=== PATIENT | female | born 1925 | race Caucasian/White ===

== ENCOUNTER 2016-08-02 04:41 | Inpatient (IN) | payer OTHER ==
[~2016-08-02] VITALS: Ht 157.5 cm; Wt 63.5 kg
--- NOTE | 2016-08-02 05:03 | NUR ---
PER PT WENT TO [facility] YESTERDAY HAD PORK AT THE [facility] ABOUT 0 STARTED VOMITING HAS NOT STOPPED, STOMACH ACHES BUT NO FEVER NO DIARRHEA,. PT REPORTS HAPPENS EVERY COUPLE OF WEEKS, AFTER EATING BUT NOT USUALLLY THIS LONG, ARRIVES RETCHING
--- NOTE | 2016-08-02 05:03 | NUR ---
MD ROSIBEL HALL
[2016-08-02] MEDS ORDERED: LIPITOR80 M1 PO (05:07)
[2016-08-02] MEDS ORDERED: ZETIA10 M1 PO (05:07)
[2016-08-02] MEDS ORDERED: METOPROLOL TAR100 M1 PO (05:07)
[2016-08-02] MEDS ORDERED: QUINAPRIL HCL10 M1 PO (05:07)
--- NOTE | 2016-08-02 05:10 | NUR ---
BLOOD DRAWN AND SENT TO LAB. LAV,SST,BLUE,SAUCEDO
--- NOTE | 2016-08-02 05:14 | ED GI/GU/ABDOMINAL COMPLAINT ---
History of Present Illness General Chief Complaint: Abdominal Pain/Flank Pain Stated Complaint: ABD PAIN,NAUSEA,AND VOMITING,DEHYDRATED Source: patient, family, old records Exam Limitations: no limitations Vital Signs & Intake/Output Vital Signs & Intake/Output Vital Signs Date Time Temp Pulse Resp B/P B/P Pulse O2 O2 Flow FiO2 Mean Ox Delivery Rate 08/03 0737 98.0 90 20 164/73 94 Room Air Room Air 08/02 0703 97.2 89 22 132/84 96 Room Air 08/02 0506 97.3 88 22 159/79 97 Room Air Allergies Coded Allergies: No Known Allergies (08/02/16) Triage Note: PER PT WENT TO [facility] YESTERDAY HAD PORK AT THE [facility] ABOUT 2230 STARTED VOMITING HAS NOT STOPPED, STOMACH ACHES BUT NO FEVER NO DIARRHEA,. PT REPORTS HAPPENS EVERY COUPLE OF WEEKS, AFTER EATING BUT NOT USUALLLY THIS LONG, ARRIVES RETCHING Triage Nurses Notes Reviewed? yes LMP (ages 10-50): post menopausal ? n Is pt currently ? No Onset: Just prior to arrival Duration: hour(s):, constant, continues in ED Timing: recent history Quality/Severity: aching, cramping, sharpness, severe, vomiting Location: epigastric Radiation: no radiation Activities at Onset: sleep Prior Abdominal Problems: none Past Sexual History: Unobtainable at this time Modifying Factors: Worsens With: eating, palpation. Associated Symptoms: abdominal pain, nausea/vomiting HPI: The afternoon prior to admission she had pork rice gravy.Several hours prior to admission patient complains of nausea vomiting severe epigastric pain described as sharp constant nonradiating. She denies fever chills chest pain cough shortness of breath headache dysuria rash bleeding ill contacts. (RENEE SEO MD) Reconcile Medications [ADULT 50+] (Unknown Strength) (Unknown Dose) UNKNOWN (Reported) Ascorbic Acid (Vitamin C) (Unknown Strength) CAPSULE.ER (Unknown Dose) SUPPLEMENT (Reported) Aspirin (Ecotrin*) 325 MG TABLET.DR 1 TAB PO DAILY HEART HEALTH (Reported) Atorvastatin Calcium (Lipitor) 80 MG TABLET 1 TAB PO DAILY CHOL (Reported) Calcium Carbonate (TUMS) (Unknown Strength) TAB.CHEW (Unknown Dose) SUPPLEMENT (Reported) Ezetimibe (Zetia) 10 MG TABLET 1 TAB PO DAILY CHOL (Reported) Folic Acid (Unknown Strength) TABLET (Unknown Dose) SUPPLEMENT (Reported) Metoprolol Tartrate 100 MG TABLET 1 TAB PO BID HTN (Reported) Multivitamin (Multivitamins) 1 EACH CAPSULE 1 TAB PO DAILY SUPPLEMENT ( Reported) [OCURITE] (Unknown Strength) (Unknown Dose) UNKNOWN (Reported) Quinapril HCl 10 MG TABLET 1 TAB PO DAILY HTN (Reported) Vitamin B Complex (B Complex) (Unknown Strength) TABLET (Unknown Dose) SUPPLEMENT (Reported) (EMMANUEL DOBSON,DACIA Petty) Past History Travel History Traveled to [place] past 21 day No Medical History Any Pertinent Medical History? see below for history Neurological: NONE EENT: NONE Cardiovascular: STENTS 14 YRS AGO CHOL Respiratory: NONE Gastrointestinal: NONE Hepatic: NONE Renal: NONE Musculoskeletal: NONE Psychiatric: NONE Endocrine: NONE Surgical History Surgical History: non-contributory Psychosocial History What is your primary language Belarusian Tobacco Use: Never used Family History Hx Contributory? No (RENEE SEO MD) Review of Systems Review of Systems Constitutional: Reports: see HPI, malaise, weakness. EENTM: Reports: no symptoms. Respiratory: Reports: no symptoms. Cardiovascular: Reports: no symptoms. GI: Reports: see HPI, abdominal pain, nausea, vomiting. Genitourinary: Reports: no symptoms. Musculoskeletal: Reports: no symptoms. Skin: Reports: no symptoms. Neurological/Psychological: Reports: no symptoms. Hematologic/Endocrine: Reports: no symptoms. Immunologic/Allergic: Reports: no symptoms. All Other Systems: Reviewed and Negative (RENEE SEO MD) Physical Exam Physical Exam General Appearance: well developed/nourished, alert, awake, anxious, moderate distress Head: atraumatic, normal appearance Eyes: Bilateral: normal appearance, PERRL, EOMI, normal inspection. Ears, Nose, Throat, Mouth: hearing grossly normal, moist mucous membrane Neck: normal inspection, supple, full range of motion, normal alignment Respiratory: normal breath sounds, chest non-tender, no respiratory distress, quiet respiration, lungs clear Cardiovascular: regular rate/rhythm, normal peripheral pulses, norml femoral pulses equa Peripheral Pulses: 4+ carotid (R), 4+ carotid (L) Gastrointestinal: normal bowel sounds, soft, no organomegaly, tenderness ( epigastric) Back: normal inspection, normal range of motion, no vertebral tenderness Extremities: normal range of motion, no ligament instability Neurologic/Psych: no motor/sensory deficits, awake, alert, oriented x 3, normal gait, normal mood/affect, product operations associate II-XII nml as tested Skin: intact, normal color, warm/dry Core Measures ACS in differential dx? Yes ASA ordered for poss ACS? No-ACS ruled out Severe Sepsis Present: No Septic Shock Present: No (GABBI DOBSON,RENEE) Progress Differential Diagnosis: biliary colic, cholecystitis, diverticulitis, gastritis, pancreatitis Plan of Care: Orders Procedure Date/time Status URINALYSIS 08/03 827 Complete TROPONIN LEVEL 08/02 502 Complete LIPASE 08/02 502 Complete COMPREHENSIVE METABOLIC PANEL 08/02 502 Complete CBC WITHOUT DIFFERENTIAL 08/02 502 Complete EKG 08/02 502 Active Laboratory Tests 08/02/16 0834: Urine Color YEL, Urine Clarity CLEAR, Urine pH 6.5, Ur Specific [place] 1.010, Urine Protein NEG, Urine Ketones NEG, Urine Nitrite POS H, Urine Bilirubin NEG, Urine Urobilinogen 0.2, Ur Leukocyte Esterase NEG, Ur Microscopic SEDIMENT EXAMINED, Urine RBC 3-5, Urine WBC 1-3 H, Ur Epithelial Cells FEW, Urine Bacteria MANY H, Urine Hemoglobin TRACE-INTACT, Urine Glucose NEG 08/02/16 0508: Anion Gap 12, Estimated GFR > 60, BUN/Creatinine Ratio 36.7 H, Glucose 141 H, Calcium 9.5, Total Bilirubin 0.9, AST 32, ALT 41, Alkaline Phosphatase 84, Troponin I 0.02, Total Protein 7.4, Albumin 4.4, Globulin 3.0, Albumin/Globulin Ratio 1.5, Lipase 111, CBC w Diff MAN DIFF ORDERED, RBC 4.48, MCV 93.6, MCH 31.0 , RDW 14.3, MPV 7.9, Gran % 91.1 H, Lymphocytes % 5.9 L, Monocytes % 2.6, Eosinophils % 0.2, Basophils % 0.2, Absolute Granulocytes 17.4 H, Segmented Neutrophils 91 H, Band Neutrophils 2, Absolute Lymphocytes 1.1 L, Lymphocytes 5 L, Monocytes 2, Absolute Monocytes 0.5, Absolute Eosinophils 0, Absolute Basophils 0, Platelet Estimate ADEQUATE, Normocytic RBCs VERIFIED, Normochromic RBCs VERIFIED, PUBS MCHC 33.1, Fld Total RBCs Counted 100 Diagnostic Imaging: Viewed by Me: CT Scan. Discussed w/RAD: CT Scan. Initial ED EKG: normal intervals, normal p-waves, normal sinus rhythm, RBBB, no ST T wave changes Prior EKG: unchanged Rhythm Strip: normal sinus rhythm Hand-Off Endorsed To: DACIA BENITEZ MD Endorsed Time: 703 Pending: CT (RENEE SEO MD) Comments: 08:23 patient signed out to me by Dr. Seo at shift car changer. PER RADIOLOGIST DR GONZALEZ, PT HAS ACUTE APPY. DIVERTICULOSIS. 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 08/02/2016 8:30:14 AM I have updated Ni regarding her CAT scan report. I am paging surgery. 08/02/2016 9:13:56 AM pt case discussed with Dr. Alvarado who wishes to review the patient's CAT scan images. I have delivered the disc to the radiology file room to be downloaded to our system. 08/02/2016 9:26:19 AM patient is currently being evaluated by Dr. Alvarado. (DACIA BENITEZ MD) Departure Departure Disposition: STILL A PATIENT Condition: Stable Referrals: LALIT MATHEWS MD (PCP/Family) Departure Forms: Customer Survey General Discharge Information (RENEE SEO MD) Departure Clinical Impression Primary Impression: Appendicitis, acute Qualifiers: Acute appendicitis type: with localized peritonitis Qualified Code: K35.3 - Acute appendicitis with localized peritonitis (DACIA BENITEZ MD) Customer Survey General Discharge Information (RENEE SEO MD)
--- NOTE | 2016-08-02 05:24 | NUR ---
RESTING COMF. NO FURTHER NAUSEA.
[2016-08-02 05:25] LABS: ABSOLUTE BASOPHIL COUNT 0 /CUMM (0.0-0.2); ABSOLUTE EOSINOPHIL COUNT 0 /CUMM (0.0-0.7); ABSOLUTE GRANULOCYTE CT 17.4 /CUMM (1.4-6.5); ABSOLUTE LYMPH COUNT 1.1 /CUMM (1.2-3.4); ABSOLUTE MONOCYTE COUNT 0.5 /CUMM (0.10-0.60); BASOPHIL % 0.2 % (0.0-2.0); EOSINOPHIL % 0.2 % (0-5); GRANULOCYTE % 91.1 % (42.2-75.2); HEMATOCRIT 41.9 % (37-47); MEAN CORPUSCULAR HGB CONC 33.1 G/DL (33.0-37.0); MEAN CORPUSCULAR VOLUME 93.6 FL (81.0-99.0); MEAN PLATELET VOLUME 7.9 FL (7.4-10.4); PLATELET COUNT 241 /CUMM (130-400); RBC DISTRIBUTION WIDTH 14.3 % (11.5-14.5); RED BLOOD CELL CT 4.48 /CUMM (4.20-5.40)
[2016-08-02 05:28] LABS: WHITE BLOOD CELL COUNT 19.1 /CUMM (4.8-10.8)
--- NOTE | 2016-08-02 07:02 | NUR ---
TO [facility] VIA EMS .
--- NOTE | 2016-08-02 07:24 | NUR ---
CARE ASSUMED BY THIS RN NOW. PT CURRENTLY OUT OF DEPARTMENT AT [facility] FOR CAT SCAN.
--- NOTE | 2016-08-02 08:26 | NUR ---
pt returned from cat scan now.
--- NOTE | 2016-08-02 08:38 | NUR ---
URINE TRIO SENT TO LAB
--- NOTE | 2016-08-02 08:54 | NUR ---
PT MEDICATED WITH ZOFRAN, MORPHINE AND UNASYN PER EMAR. TOLERATED WELL.
[2016-08-02] MEDS ORDERED: ASPIRIN EC325 M2 PO (09:03)
[2016-08-02] MEDS ORDERED: MULTIVITAMINS1 EAC8 PO (09:04)
[2016-08-02] MEDS ORDERED: FOLIC ACID1 M1 (09:05)
[2016-08-02] MEDS ORDERED: TUMS200 MG (09:05)
[2016-08-02] MEDS ORDERED: B COMPLEX1 EACH (09:05)
[2016-08-02] MEDS ORDERED: [UNRECOGNIZED DRUG - OTHER] (09:06)
[2016-08-02] MEDS ORDERED: VITAMIN C500 M7 (09:06)
[2016-08-02] MEDS ORDERED: [UNRECOGNIZED DRUG - OTHER] (09:07)
--- NOTE | 2016-08-02 09:26 | NUR ---
DR. HADDAD AT BEDSIDE FOR EVAL.
--- NOTE | 2016-08-02 10:49 | Cons- Cardiology ---
General Information and HPI Consulting Request Date of Consult: 08/02/16 Requested By: Yaz Alvarado M.D. Reason for Consult: Cardiac clearance for appendectomy Source of Information: patient, old records Exam Limitations: no limitations History of Present Illness: Ni Jacobs is an 89-year-old female who I have been following since 2001. At that time, she presented with chest pain. She had anterior ST elevation. She did not receive thrombolytic therapy or early catheterization. She had a peak troponin of 32.8. Her echo documented anterior and apical hypokinesis. She was transferred to [facility] where she was found to have 99% stenosis of the LAD. She had angioplasty and stenting performed successfully. Subsequently she was followed up in the office and has done well. She had a very high cholesterol of 278 when she first presented. She underwent cardiac rehabilitation and did very well. She had 1 episode of supraventricular tachycardia in cardiac rehab but no other issues. Subsequently her echocardiogram when it was repeated in 07/2002 showed normal left ventricular systolic function. Her last echo in 2015 again showed normal left ventricular systolic function with no regional wall motion abnormalities. She did have some evidence of diastolic dysfunction. Fortunately, Ni has not had any further cardiac events since her initial presentation. Her lipids have been under good control on high dose Lipitor and Zetia. Her last stress test in 2005 showed no evidence of ischemia. Her medications include atorvastatin, Ecotrin, metoprolol, quinapril and Zetia. I last saw her in the office about 2 months ago which time she was completely asymptomatic and her physical examination was unremarkable. Ni now presents with abdominal pain since yesterday and was found to have appendicitis and surgery is planned in the near future. She has not had any cardiac complaints since I saw her last including chest pain, shortness of breath, palpitations, etc. Allergies/Medications Allergies: Coded Allergies: No Known Allergies (08/02/16) Home Med List: [ADULT 50+] (Unknown Strength) (Unknown Dose) UNKNOWN (Reported) Ascorbic Acid (Vitamin C) (Unknown Strength) CAPSULE.ER (Unknown Dose) SUPPLEMENT (Reported) Aspirin (Ecotrin*) 325 MG TABLET.DR 1 TAB PO DAILY HEART HEALTH (Reported) Atorvastatin Calcium (Lipitor) 80 MG TABLET 1 TAB PO DAILY CHOL (Reported) Calcium Carbonate (TUMS) (Unknown Strength) TAB.CHEW (Unknown Dose) SUPPLEMENT (Reported) Ezetimibe (Zetia) 10 MG TABLET 1 TAB PO DAILY CHOL (Reported) Folic Acid (Unknown Strength) TABLET (Unknown Dose) SUPPLEMENT (Reported) Metoprolol Tartrate 100 MG TABLET 1 TAB PO BID HTN (Reported) Multivitamin (Multivitamins) 1 EACH CAPSULE 1 TAB PO DAILY SUPPLEMENT ( Reported) [OCURITE] (Unknown Strength) (Unknown Dose) UNKNOWN (Reported) Quinapril HCl 10 MG TABLET 1 TAB PO DAILY HTN (Reported) Vitamin B Complex (B Complex) (Unknown Strength) TABLET (Unknown Dose) SUPPLEMENT (Reported) Current Medications: Current Medications Sig/Wyatt Start time Last Medication Dose Route Stop Time Status Admin Acetaminophen 0 .STK-MED ONE 08/02 0552 DC IV Acetaminophen 0 .STK-MED ONE 08/02 0547 DC IV Acetaminophen 1,000 MG ONCE ONE 08/02 0545 DC 08/02 IV 08/02 0546 0550 Ampicillin Sodium/ 0 .STK-MED ONE 08/02 0846 DC Sulbactam Sodium .ROUTE Ampicillin Sodium/ 3,000 MG ONCE ONE 08/02 0830 DC 08/02 Sulbactam Sodium IV 08/02 0859 0854 Sodium Chloride 100 ML Morphine Sulfate 0 .STK-MED ONE 08/02 0846 DC .ROUTE Morphine Sulfate 2 MG ONCE ONE 08/02 0845 DC 08/02 IV 08/02 0846 0854 Morphine Sulfate 2 MG ONCE ONE 08/02 0700 DC 08/02 IV 08/02 0701 0701 Morphine Sulfate 0 .STK-MED ONE 08/02 0656 DC .ROUTE Ondansetron HCl 0 .STK-MED ONE 08/02 0846 DC .ROUTE Ondansetron HCl 4 MG ONCE ONE 08/02 0845 DC 08/02 IV 08/02 0846 0854 Ondansetron HCl 4 MG ONCE ONE 08/02 0515 DC 08/02 IV 08/02 0516 0509 Ondansetron HCl 0 .STK-MED ONE 08/02 0503 DC .ROUTE Promethazine HCl 12.5 MG ONCE ONE 08/02 1045 UNVr IV 08/02 1046 Sodium Chloride 1,000 ML BOLUS ONE 08/02 0515 DC 08/02 IV 08/02 0614 0509 Review of Systems Review of Systems: She has no other complaints in the review of systems aside from abdominal pain Past History Travel History Traveled to [place] past 21 day No Medical History Neurological: NONE EENT: NONE Cardiovascular: STENTS 14 YRS AGO CHOL Respiratory: NONE Gastrointestinal: NONE Hepatic: NONE Renal: NONE Musculoskeletal: NONE Psychiatric: NONE Endocrine: NONE Surgical History Surgical History: non-contributory Exam & Diagnostic Data Vital Signs and I&O Vital Signs Date Time Temp Pulse Resp B/P B/P Pulse O2 O2 Flow FiO2 Mean Ox Delivery Rate 08/03 0737 98.0 90 20 164/73 94 Room Air Room Air 08/02 0703 97.2 89 22 132/84 96 Room Air 08/02 0506 97.3 88 22 159/79 97 Room Air Intake & Output 08/02 1600 08/02 0800 08/02 0000 08/01 1600 08/01 0800 08/01 0000 Intake Total 0 Output Total Balance 0 Intake, Oral 0 Patient 165 lb Weight Physical Exam: Well-developed well-nourished elderly woman complaining of abdominal pain HEENT exam normal Neck veins not distended Carotids normal Chest clear Heart regular rhythm no murmurs Abdomen diffusely tender especially in the right lower quadrant to deep palpation Extremities no edema Labs/Rajeev Results: Laboratory Tests 08/02 08/02 0834 0508 Chemistry Sodium (137 - 145 mmol/L) 135 L Potassium (3.5 - 5.1 mmol/L) 4.2 Chloride (98 - 107 mmol/L) 101 Carbon Dioxide (22 - 30 mmol/L) 23 Anion Gap (5 - 16) 12 BUN (7 - 17 mg/dL) 22 H Creatinine (0.5 - 1.0 mg/dL) 0.6 Estimated GFR (>60 ml/min) > 60 BUN/Creatinine Ratio (7 - 25 %) 36.7 H Glucose (65 - 99 mg/dL) 141 H Calcium (8.4 - 10.2 mg/dL) 9.5 Total Bilirubin (0.2 - 1.3 mg/dL) 0.9 AST (14 - 36 U/L) 32 ALT (9 - 52 U/L) 41 Alkaline Phosphatase (<127 U/L) 84 Troponin I (< 0.11 ng/ml) 0.02 Total Protein (6.3 - 8.2 g/dL) 7.4 Albumin (3.5 - 5.0 g/dL) 4.4 Globulin (1.9 - 4.2 gm/dL) 3.0 Albumin/Globulin Ratio (1.1 - 2.2 %) 1.5 Lipase (23 - 300 U/L) 111 Hematology CBC w Diff MAN DIFF ORDERED WBC (4.8 - 10.8 /CUMM) 19.1 H RBC (4.20 - 5.40 /CUMM) 4.48 Hgb (12.0 - 16.0 G/DL) 13.9 Hct (37 - 47 %) 41.9 MCV (81.0 - 99.0 FL) 93.6 MCH (27.0 - 31.0 PG) 31.0 RDW (11.5 - 14.5 %) 14.3 Plt Count (130 - 400 /CUMM) 241 MPV (7.4 - 10.4 FL) 7.9 Gran % (42.2 - 75.2 %) 91.1 H Lymphocytes % (20.5 - 51.1 %) 5.9 L Monocytes % (1.7 - 9.3 %) 2.6 Eosinophils % (0 - 5 %) 0.2 Basophils % (0.0 - 2.0 %) 0.2 Absolute Granulocytes (1.4 - 6.5 /CUMM) 17.4 H Segmented Neutrophils (42.2 - 75.2 %) 91 H Band Neutrophils (0.0 - 5.0 %) 2 Absolute Lymphocytes (1.2 - 3.4 /CUMM) 1.1 L Lymphocytes (20.5 - 51.1 %) 5 L Monocytes (1.7 - 9.3 %) 2 Absolute Monocytes (0.10 - 0.60 /CUMM) 0.5 Absolute Eosinophils (0.0 - 0.7 /CUMM) 0 Absolute Basophils (0.0 - 0.2 /CUMM) 0 Platelet Estimate (ADEQUATE) ADEQUATE Normocytic RBCs VERIFIED Normochromic RBCs VERIFIED PUBS MCHC (33.0 - 37.0 G/DL) 33.1 Other Body Source Fld Total RBCs Counted (%) 100 Urines Urine Color (YEL,AMB,STR) YEL Urine Clarity (CLEAR) CLEAR Urine pH (5.0 - 8.0) 6.5 Ur Specific [place] (1.001 - 1.035) 1.010 Urine Protein (NEG,<30 MG/DL) NEG Urine Ketones (NEG) NEG Urine Nitrite (NEG) POS H Urine Bilirubin (NEG) NEG Urine Urobilinogen (0.1 - 1.0 EU/dl) 0.2 Ur Leukocyte Esterase (NEG) NEG Ur Microscopic SEDIMENT EXAMINED Urine RBC (0 - 5 /HPF) 3-5 Urine WBC (0 - 2 /HPF) 1-3 H Ur Epithelial Cells (NONE,FEW) FEW Urine Bacteria (NEG/NONE) MANY H Urine Hemoglobin (NEG) TRACE-INTACT Urine Glucose (N MG/DL) NEG Diagnostic Data EKG Results Sinus rhythm at a rate of 76 with first-degree AV block and right bundle branch block pattern. The bundle branch is new since her last EKG in the [employer] system from 2002. However her recent office EKGs have shown right bundle branch block and look very similar to today's EKG. CXR Results Not done Assessment/Plan Assessment/Plan Ni Jacobs is an 89-year-old female with previous myocardial infarction but preserved left ventricular function. She had a stent to her LAD many years ago but she has been very stable since then with no recurrence of any ischemic heart disease. She is on a good medical regimen. She is stable from a cardiac standpoint and cleared for urgent surgery for appendicitis. I would resume her preoperative medications as soon as possible postoperatively. Consult Acknowledgment - Thank you for your consult request.
--- NOTE | 2016-08-02 11:05 | NUR ---
DR. EDUARDO AT BEDSIDE FOR EVAL.
--- NOTE | 2016-08-02 11:07 | NUR ---
BLOOD DRAWN AND SENT TO LAB P[facility]
--- NOTE | 2016-08-02 11:17 | RADIOLOGY REPORT ---
EXAMINATION: XR PORTABLE CHEST CLINICAL INFORMATION: Preoperative chest x-ray COMPARISON: None TECHNIQUE: Portable frontal view of the chest was obtained. FINDINGS: Cardiomediastinal silhouette is within normal limits. Mild prominence of the pulmonary and bronchial markings likely representing chronic change. No acute airspace opacity. There is no pleural effusion. Bony thorax is intact. IMPRESSION: 1. No acute pulmonary disease. 2. Probable chronic changes.
--- NOTE | 2016-08-02 11:33 | NUR ---
PINK TOP RE-DRAWN VIA STRAIGHT STICK AND SENT TO LAB NOW.
--- NOTE | 2016-08-02 11:48 | NUR ---
PT'S O2 SAT DIPPED TO 89% ON RA WHILE SLEEPING. PT PLACED ON 2L NC OXYGEN WITH IMPROVEMENT TO 94%.
--- NOTE | 2016-08-02 12:11 | History & Physical Pre-Op ---
General Information and HPI Source of Information: patient, old records Exam Limitations: no limitations History of Present Illness: This is an 89-year-old woman who presents from home to the emergency room for evaluation of abdominal pain. She states the pain began yesterday afternoon. The pain was more diffuse bilateral lower abdominal pain. Bowel function did not improve her symptoms. There is anorexia but no vomiting. This morning the pain was severe prompting an early-morning trip to the emergency room for evaluation. Allergies/Medications Allergies: Coded Allergies: No Known Allergies (08/02/16) Home Med list [ADULT 50+] (Unknown Strength) (Unknown Dose) UNKNOWN (Reported) Ascorbic Acid (Vitamin C) (Unknown Strength) CAPSULE.ER (Unknown Dose) SUPPLEMENT (Reported) Aspirin (Ecotrin*) 325 MG TABLET.DR 1 TAB PO DAILY HEART HEALTH (Reported) Atorvastatin Calcium (Lipitor) 80 MG TABLET 1 TAB PO DAILY CHOL (Reported) Calcium Carbonate (TUMS) (Unknown Strength) TAB.CHEW (Unknown Dose) SUPPLEMENT (Reported) Ezetimibe (Zetia) 10 MG TABLET 1 TAB PO DAILY CHOL (Reported) Folic Acid (Unknown Strength) TABLET (Unknown Dose) SUPPLEMENT (Reported) Metoprolol Tartrate 100 MG TABLET 1 TAB PO BID HTN (Reported) Multivitamin (Multivitamins) 1 EACH CAPSULE 1 TAB PO DAILY SUPPLEMENT ( Reported) [OCURITE] (Unknown Strength) (Unknown Dose) UNKNOWN (Reported) Quinapril HCl 10 MG TABLET 1 TAB PO DAILY HTN (Reported) Vitamin B Complex (B Complex) (Unknown Strength) TABLET (Unknown Dose) SUPPLEMENT (Reported) Past History Medical History Neurological: NONE EENT: NONE Cardiovascular: hypertension, hyperlipidemia, STENTS 14 YRS AGO Respiratory: NONE Gastrointestinal: NONE Hepatic: NONE Renal: NONE Musculoskeletal: NONE Psychiatric: NONE Endocrine: NONE Surgical History Pertinent Surgical History: hernia repair-inguinal Review of Systems Review of Systems: chest pain no exertional dyspnea. Abdominal pain per HPI. No dysuria remainder 12 points negative Exam & Diagnostic Data Last 24 Hrs of Vital Signs/I&O Vital Signs Date Time Temp Pulse Resp B/P B/P Pulse O2 O2 Flow FiO2 Mean Ox Delivery Rate 08/02 1135 101.4 97 16 152/67 98 Room Air 08/02 0837 98.0 90 20 164/73 94 Room Air Room Air 08/02 0703 97.2 89 22 132/84 96 Room Air 08/02 0506 97.3 88 22 159/79 97 Room Air Intake & Output 08/02 1600 08/02 0800 08/02 0000 Intake Total 0 Output Total Balance 0 Intake, Oral 0 Patient 165 lb Weight Physical Exam: Gen.: She looks well she looks her stated age and is of average body habitus. HEENT: Anicteric PERRL EOMI Neck: Supple no adenopathy no JVD Chest: Nontender normal excursion normal effort Abdomen: Soft and tender bilateral lower abdomen right greater than left. Well- healed inguinal scar. Last 24 Hrs of Labs/Rajeev: Laboratory Tests 08/02/16 0834: Urine Color YEL, Urine Clarity CLEAR, Urine pH 6.5, Ur Specific [place] 1.010, Urine Protein NEG, Urine Ketones NEG, Urine Nitrite POS H, Urine Bilirubin NEG, Urine Urobilinogen 0.2, Ur Leukocyte Esterase NEG, Ur Microscopic SEDIMENT EXAMINED, Urine RBC 3-5, Urine WBC 1-3 H, Ur Epithelial Cells FEW, Urine Bacteria MANY H, Urine Hemoglobin TRACE-INTACT, Urine Glucose NEG 08/02/16 0508: Anion Gap 12, Estimated GFR > 60, BUN/Creatinine Ratio 36.7 H, Glucose 141 H, Calcium 9.5, Total Bilirubin 0.9, AST 32, ALT 41, Alkaline Phosphatase 84, Troponin I 0.02, Total Protein 7.4, Albumin 4.4, Globulin 3.0, Albumin/Globulin Ratio 1.5, Lipase 111, CBC w Diff MAN DIFF ORDERED, RBC 4.48, MCV 93.6, MCH 31.0 , RDW 14.3, MPV 7.9, Gran % 91.1 H, Lymphocytes % 5.9 L, Monocytes % 2.6, Eosinophils % 0.2, Basophils % 0.2, Absolute Granulocytes 17.4 H, Segmented Neutrophils 91 H, Band Neutrophils 2, Absolute Lymphocytes 1.1 L, Lymphocytes 5 L, Monocytes 2, Absolute Monocytes 0.5, Absolute Eosinophils 0, Absolute Basophils 0, Platelet Estimate ADEQUATE, Normocytic RBCs VERIFIED, Normochromic RBCs VERIFIED, PUBS MCHC 33.1, Fld Total RBCs Counted 100 Diagnostic Data EKG Results Sinus rhythm at a rate of 76 with first-degree AV block and right bundle branch block pattern. The bundle branch is new since her last EKG in the [employer] system from 2002. However her recent office EKGs have shown right bundle branch block and look very similar to today's EKG. CXR Results Not done Other Results CT scan of the abdomen pelvis was personally reviewed. The images show fecalith in the base of the appendix with retrocecal appendix extending up to the level of the liver. There is no free fluid no free air Assessment/Plan Assessment/Plan: Acute appendicitis in elderly woman. She has baseline cardiac disease which has been stable for many years. Currently her infectious process warrants emergent surgical intervention. She was taken the operating for laparoscopic appendectomy. Broad-spectrum antibiotics will be given perioperatively. Patient's informed the risk of the operation going bleeding infection and conversion to open. She agrees to proceed. As Ranked By This Provider Problem List: 1. Appendicitis, acute Copies To: BISI DOBSON,LALIT
--- NOTE | 2016-08-02 12:16 | NUR ---
PRE OP SCRUB COMPLETED. JEWELRY REMOVED EXCEPT WEDDING BAND (UNABLE TO GET OVER KNUCKLE). PT IS DROWSY TO VERBAL STIMULI AFTER PHENERGEN ADMINISTRATION. VSS. WILL CONTINUE TO MONITOR.
--- NOTE | 2016-08-02 12:30 | NUR ---
PT SENT TO OR NOW. SPOKE WITH ANESTHESIOLOGIST WHO WAS INFORMED OF PT'S TEMP OF 102 BUT IV OFIRMEV INFUSING CURRENTLY. ALSO INFORMED OF PT'S SLIGHT DROWSINESS AFTER PHENERGEN ADMINISTRATION AND PT PLACED ON 2L NC OXYGEN FOR DECREASED O2 SAT WHILE SLEEPING.
--- NOTE | 2016-08-02 15:31 | Operative Report ---
Operative/Inv Procedure Report Surgery Date: 08/02/16 Name of Procedure: Laparoscopic appendectomy Pre-Operative Diagnosis: Appendicitis Post-Operative Diagnosis: Same, with peritonitis/perforation Estimated Blood Loss: scant Surgeon/Flat Sheet Maker: JONO HADDAD MD Anesthesia: general endotracheal tube Specimens: Appendix Microbiology: Fluid for culture Operative Indication: See preoperative H&P Operative/Procedure Note Note: After consent patient is brought to the operating room and laid supine. General anesthesia was obtained his abdomen was prepped and draped. Skin above the umbilicus was after local anesthesia a curvilinear incision made sharply. We dissected through subcutaneous tissues tissues bluntly and identified the fascia. It was grasped with Empire's and a fasciotomy created sharply. The peritoneum was entered sharply and a blunt Arroyo port was placed. Pneumoperitoneum was achieved. 2, 5 mm ports were placed in the suprapubic region and left lower quadrant, after local anesthesia was instilled and under direct vision the camera. Patient placed in Trendelenburg and rotated towards the left. The abdomen was explored. The appendix was retrocecal as was noted on preop CT scan. The white line of Toldt was then taken down with cautery. We then mobilized the ileum and cecum along with the appendix medially. The appendix was chronically inflamed and a portion of the proximal aspect of that was gangrenous with near perforation. The appendix perforated spontaneously during our dissection. The specimen of purulent stool was taken for culture. Care dissection superiorly up to the level of the liver. We were then able to peel the appendix off of the retroperitoneal tissues and cecum. A window medial was then developed bluntly along the avascular planes. At this point we had mobilized the appendix enough to divide the mesentery. A window at the base of the appendix was developed with a [place]. The mesentery was then divided with 2 loads of Endo KERRI Lopez load. The base was divided with a reload. The appendix placed in Endo Catch bag and cinched up. The right lower quadrant and pelvis were then irrigated with normal saline. Hemostasis was adequate. Ports then removed and appendix delivered and passed off the field. The fascia was closed 0 Vicryl suture. Skin incisions closed with 4-0 Vicryl. Steri-Strips and sterile dressing applied. Sponge and needle counts are correct CC: BISI DOBSON,LALIT
--- NOTE | 2016-08-02 16:02 | Admission Core Measures ---
Admission Lab Results I reviewed the following labs: Laboratory Tests 08/02 08/02 0834 0508 Chemistry Sodium (137 - 145 mmol/L) 135 L Potassium (3.5 - 5.1 mmol/L) 4.2 Chloride (98 - 107 mmol/L) 101 Carbon Dioxide (22 - 30 mmol/L) 23 Anion Gap (5 - 16) 12 BUN (7 - 17 mg/dL) 22 H Creatinine (0.5 - 1.0 mg/dL) 0.6 Estimated GFR (>60 ml/min) > 60 BUN/Creatinine Ratio (7 - 25 %) 36.7 H Glucose (65 - 99 mg/dL) 141 H Calcium (8.4 - 10.2 mg/dL) 9.5 Total Bilirubin (0.2 - 1.3 mg/dL) 0.9 AST (14 - 36 U/L) 32 ALT (9 - 52 U/L) 41 Alkaline Phosphatase (<127 U/L) 84 Troponin I (< 0.11 ng/ml) 0.02 Total Protein (6.3 - 8.2 g/dL) 7.4 Albumin (3.5 - 5.0 g/dL) 4.4 Globulin (1.9 - 4.2 gm/dL) 3.0 Albumin/Globulin Ratio (1.1 - 2.2 %) 1.5 Lipase (23 - 300 U/L) 111 Hematology CBC w Diff MAN DIFF ORDERED WBC (4.8 - 10.8 /CUMM) 19.1 H RBC (4.20 - 5.40 /CUMM) 4.48 Hgb (12.0 - 16.0 G/DL) 13.9 Hct (37 - 47 %) 41.9 MCV (81.0 - 99.0 FL) 93.6 MCH (27.0 - 31.0 PG) 31.0 RDW (11.5 - 14.5 %) 14.3 Plt Count (130 - 400 /CUMM) 241 MPV (7.4 - 10.4 FL) 7.9 Gran % (42.2 - 75.2 %) 91.1 H Lymphocytes % (20.5 - 51.1 %) 5.9 L Monocytes % (1.7 - 9.3 %) 2.6 Eosinophils % (0 - 5 %) 0.2 Basophils % (0.0 - 2.0 %) 0.2 Absolute Granulocytes (1.4 - 6.5 /CUMM) 17.4 H Segmented Neutrophils (42.2 - 75.2 %) 91 H Band Neutrophils (0.0 - 5.0 %) 2 Absolute Lymphocytes (1.2 - 3.4 /CUMM) 1.1 L Lymphocytes (20.5 - 51.1 %) 5 L Monocytes (1.7 - 9.3 %) 2 Absolute Monocytes (0.10 - 0.60 /CUMM) 0.5 Absolute Eosinophils (0.0 - 0.7 /CUMM) 0 Absolute Basophils (0.0 - 0.2 /CUMM) 0 Platelet Estimate (ADEQUATE) ADEQUATE Normocytic RBCs VERIFIED Normochromic RBCs VERIFIED PUBS MCHC (33.0 - 37.0 G/DL) 33.1 Other Body Source Fld Total RBCs Counted (%) 100 Urines Urine Color (YEL,AMB,STR) YEL Urine Clarity (CLEAR) CLEAR Urine pH (5.0 - 8.0) 6.5 Ur Specific [place] (1.001 - 1.035) 1.010 Urine Protein (NEG,<30 MG/DL) NEG Urine Ketones (NEG) NEG Urine Nitrite (NEG) POS H Urine Bilirubin (NEG) NEG Urine Urobilinogen (0.1 - 1.0 EU/dl) 0.2 Ur Leukocyte Esterase (NEG) NEG Ur Microscopic SEDIMENT EXAMINED Urine RBC (0 - 5 /HPF) 3-5 Urine WBC (0 - 2 /HPF) 1-3 H Ur Epithelial Cells (NONE,FEW) FEW Urine Bacteria (NEG/NONE) MANY H Urine Hemoglobin (NEG) TRACE-INTACT Urine Glucose (N MG/DL) NEG Admission Meds I reviewed the following Meds: Current Medications Sig/Wyatt Start time Last Medication Dose Stop Time Status Admin Acetaminophen 1,000 MG Q6P PRN 08/02 1600 UNVr (Ofirmev) N/A 1 UNIT (No Carrier) Ampicillin Sodium/ 3,000 MG Q6 08/02 2000 UNVr Sulbactam Sodium (Unasyn) Sodium Chloride 100 ML (Normal Saline 0.9%) Aspirin Buffered 325 MG DAILY 08/03 1000 UNVr (Ecotrin) Ezetimibe 10 MG DAILY 08/03 1000 UNVr (Zetia) Heparin Sodium 5,000 UNIT Q8 08/02 2200 UNVr (Porcine) Lisinopril 10 MG DAILY 08/03 1000 UNVr (Prinivil) Metoprolol Tartrate 100 MG BID 08/02 2200 UNVr (Lopressor) Morphine Sulfate 2 MG Q4-6 PRN PRN 08/02 1600 UNVr (Morphine) Morphine Sulfate 4 MG Q4-6 PRN PRN 08/02 1600 UNVr (Morphine) Ondansetron HCl 4 MG Q6P PRN 08/02 1600 UNVr (Zofran) Potassium Chloride 20 MEQ Q10H 08/02 1600 UNVr (KCl 20MEQ in D5W NS 1000ML) Dextrose/Sodium 1,000 ML Chloride (D5-Normal Saline) Acute Coronary Syndrome Inclusion Criteria ACS Diagnosis No Inpatient Core Measures LDL Reminder: If No, please order W/I first 24hr of stay Congestive Heart Failure Inclusion Criteria CHF Diagnosis No Cerebrovascular accident Inclusion Criteria CVA/TIA Diagnosis No Inpatient Core Measures Bedside Swallow Eval Reminder: If BSE failed, place ST order Antithrombotic Reminder: Order Antithrombotic Medication by end of day 2 Antithrombotic Reminder: Document Reason Antithrombotic Not ordered by end of day 2 AFIB/Flutter Reminder: If Present, add to problem list AFIB/Flutter Reminder: Order Anticoag Medication for pts with AFIB/Flutter Atherosclerosis Reminder: If Present, add to problem list LDL Reminder: If No, please order W/I first 24hr of stay PT Order Reminder: If No, please order Venous thromboembolism Inpatient Core Measures VTE Risk Factors: Age > 40, [facility] prophylaxis d/t No contraindications No VTE Pharm Prophylaxis d/t No contraindications Inclusion Criteria - Per Current guidelines, there needs to be overlap - treatment for the first 5 days of Warfarin therapy. - Parenteral Anticoagulation (IV or SC) needs to be - given along with Warfarin therapy. VTE Diagnosis No VTE Type NONE VTE Confirmed by (Test) NONE Problem List As ranked by this Provider includes Assessment & Plan 1. Perforated appendicitis 2. S/P laparoscopic appendectomy HOME MEDS Home Med List Aspirin (Ecotrin*) 325 MG TABLET.DR 1 TAB PO DAILY HEART HEALTH (Reported) Atorvastatin Calcium (Lipitor) 80 MG TABLET 1 TAB PO DAILY CHOL (Reported) Ezetimibe (Zetia) 10 MG TABLET 1 TAB PO DAILY CHOL (Reported) Metoprolol Tartrate 100 MG TABLET 1 TAB PO BID HTN (Reported) Multivitamin (Multivitamins) 1 EACH CAPSULE 1 TAB PO DAILY SUPPLEMENT ( Reported) Quinapril HCl 10 MG TABLET 1 TAB PO DAILY HTN (Reported)
--- NOTE | 2016-08-02 17:03 | PN- General Surgery ---
Subjective Subjective: POC: Patient comfortable, no pain no nausea. She denies fever or chills. No vomiting. Objective Vital Signs and I&Os Vital Signs Date Time Temp Pulse Resp B/P B/P Pulse O2 O2 Flow FiO2 Mean Ox Delivery Rate 08/02 1231 102.0 93 20 152/69 96 Nasal 2.0L Cannula 08/02 1215 101.4 08/02 1135 101.4 97 16 152/67 98 Room Air 08/02 0837 98.0 90 20 164/73 94 Room Air Room Air 08/02 0703 97.2 89 22 132/84 96 Room Air 08/02 0506 97.3 88 22 159/79 97 Room Air Intake & Output 08/02 1600 08/02 0800 08/02 0000 08/01 1600 08/01 0000 Intake Total 0 Output Total Balance 0 Intake, Oral 0 Patient 165 lb Weight Physical Exam: Well-developed well-nourished no apparent distress. HEENT: Atraumatic, extraocular motion intact dry mucous membranes, Neck: Supple, no lymphadenopathy Respiratory: No respiratory distress Abdomen: Soft, nontender nondistended, dressings clean dry and intact Extremities: No edema, no calf pain Neuro: Alert and oriented x3 Psych: Mood affect normal, normal memory normal judgment. Skin: Warm and dry, no rash on exposed skin Assessment/Plan Assessment/Plan Postop day #0 status post laparoscopic appendectomy secondary to appendicitis with perforation/peritonitis Admitted to general surgical service, Dr. Alvarado Requires IV antibiotics, Unasyn secondary to perforation/peritonitis Advance diet as tolerated GI and DVT prophylaxis Pain medication as needed IV fluids, DC when tolerating adequate by mouth Labs tomorrow morning Core Measures/Miscellaneous Venous Thromboembolism VTE Risk Factors: Age > 40, Surgery VTE Contraindications: No Contraindications VTE Diagnosis: No VTE Type: NONE VTE Confirmed by (Test): NONE Beta Hilary Is Beta Hilary a Home Med? No Antibiotics Is Patient on Antibiotics? Yes If Yes: infection
[2016-08-02 17:45] VITALS: BP 110/60
--- NOTE | 2016-08-02 18:00 | NUR ---
PT ARRIVED TO FLOOR AT [facility]. 174. A&O X 3, LETHARGIC, AROUSABLE, NO C/O PAIN. FAMILY TO BEDSIDE. BED LOW, LOCKED, CALL BENITEZ WITHIN REACH AND BED ALARM ENGAGED. CONT TO MONITOR.
[2016-08-02 20:00] VITALS: BP 138/68
[2016-08-02 22:00] VITALS: BP 136/66
[2016-08-03 00:27] VITALS: BP 120/58
[2016-08-03 02:18] VITALS: BP 104/50
[2016-08-03 06:00] VITALS: BP 110/56
[2016-08-03 08:23] LABS: ABSOLUTE BASOPHIL COUNT 0 /CUMM (0.0-0.2); ABSOLUTE EOSINOPHIL COUNT 0 /CUMM (0.0-0.7); ABSOLUTE GRANULOCYTE CT 14.2 /CUMM (1.4-6.5); ABSOLUTE LYMPH COUNT 1.1 /CUMM (1.2-3.4); ABSOLUTE MONOCYTE COUNT 0.9 /CUMM (0.10-0.60); BASOPHIL % 0 % (0.0-2.0); EOSINOPHIL % 0 % (0-5); GRANULOCYTE % 87.2 % (42.2-75.2); MEAN CORPUSCULAR HGB 31.5 PG (27.0-31.0); MEAN CORPUSCULAR HGB CONC 33.2 G/DL (33.0-37.0); MEAN CORPUSCULAR VOLUME 94.8 FL (81.0-99.0); MEAN PLATELET VOLUME 8.2 FL (7.4-10.4); PLATELET COUNT 185 /CUMM (130-400); RBC DISTRIBUTION WIDTH 14.4 % (11.5-14.5); RED BLOOD CELL CT 3.57 /CUMM (4.20-5.40); WHITE BLOOD CELL COUNT 16.3 /CUMM (4.8-10.8)
--- NOTE | 2016-08-03 08:31 | NUR ---
PT HAS NO CODE STATUS ON RECORD. SURG GELACIO GALE INFORMED.
[2016-08-03 08:55] LABS: HEMATOCRIT 33.8 % (37-47)
--- NOTE | 2016-08-03 09:59 | PN- General Surgery ---
See Addendum Subjective Subjective: pod#1 s/p lap appy(perforated) no major issues overnight denies cp, sob, no n+v with diet Objective Vital Signs and I&Os Vital Signs Date Time Temp Pulse Resp B/P B/P Pulse O2 O2 Flow FiO2 Mean Ox Delivery Rate / 0901 108/50 06/ 0600 99.0 83 18 110/56 94 Room Air 08/03 0218 100.1 72 20 104/50 88 / 0027 100.2 70 20 120/58 86 / 2200 98.8 70 20 136/66 93 Room Air / 2121 130/58 / 2000 98.9 71 20 138/68 93 Room Air 08/02 1745 97.5 79 18 110/60 94 Room Air 08/02 1231 102.0 93 20 152/69 96 Nasal 2.0L Cannula 08/02 1215 101.4 08/02 1135 101.4 97 16 152/67 98 Room Air Intake & Output 08/03 1600 08/03 0800 08/03 0000 08/02 1600 08/02 0800 / 0000 Intake Total 1040 650 0 Output Total 500 600 Balance 540 50 0 Intake, IV 800 400 Intake, Oral 240 250 0 Output, Urine 500 600 Patient 140 lb 165 lb Weight Physical Exam: cv: rrr lungs: clear abd: soft, hypoactive bs ext: warm, no calf tenderness distal cms inact Assessment/Plan Assessment/Plan surgical stable plan hep sq/alps fro dvt prophylaxis oob/ambulate cont iv abx clear diet but slow Core Measures/Miscellaneous Venous Thromboembolism VTE Risk Factors: Age > 40, Surgery VTE Contraindications: No Contraindications VTE Diagnosis: No VTE Type: NONE VTE Confirmed by (Test): NONE Beta Hilary Is Beta Hilary a Home Med? No Antibiotics Is Patient on Antibiotics? Yes If Yes: infection
--- NOTE | 2016-08-03 13:07 | Admission Certification ---
Admission Certification Certification Statement - As attending physician, I certify that at the time of - admission, based on clinical presentation, severity of - symptoms, need for further diagnostic testing and - therapeutic interventions, and risk of adverse outcomes - without in-hospital treatment, in my clinical assessment, - this patient requires an acute hospital stay for a minimum - of two nights or longer. I have also considered psychsocial - factors such as support system, advanced age, financial - issues, cognitive issues, and failed out-patient treatments, - past re-admission history, safety of patient, and lack of - compliance as applicable. Specific rationale supporting this admission is: appendicitis with peritonitis requiring 3 days iv antibiotics.
[2016-08-03 14:42] VITALS: BP 112/60
--- NOTE | 2016-08-03 15:58 | NUR ---
THIS RN TOOK OVER PT'S CARE 11 AM-3 PM. PT STABLE AND IN NO DISTRESS. REPORT GIVEN TO DIPAK FOFANA WHO WILL RESUME CARE FOR PT.
--- NOTE | 2016-08-03 16:48 | PN- Cardiology ---
Subjective Subjective: * Patient is doing well without chest discomfort or shortness of breath. She does have some manageable abdominal discomfort post-operatively. * Normal troponin Objective Vital Signs and I&Os Vital Signs Date Time Temp Pulse Resp B/P B/P Pulse O2 O2 Flow FiO2 Mean Ox Delivery Rate 08/03 1442 98.6 62 18 112/60 92 Room Air 08/03 0901 108/50 08/03 0600 99.0 83 18 110/56 94 Room Air 08/03 0218 100.1 72 20 104/50 88 / 0027 100.2 70 20 120/58 86 / 2200 98.8 70 20 136/66 93 Room Air 08/02 2121 130/58 08/02 2000 98.9 71 20 138/68 93 Room Air 08/02 1745 97.5 79 18 110/60 94 Room Air Intake & Output 08/03 1600 08/03 0800 08/03 0000 / 1600 08/02 0800 08/02 0000 Intake Total 900 1040 650 0 Output Total 400 500 600 Balance 500 540 50 0 Intake, IV 650 800 400 Intake, Oral 250 240 250 0 Number 0 Bowel Movements Output, Urine 400 500 600 Patient 140 lb 165 lb Weight Physical Exam: General: WD/ WN female in NAD; alert and oriented x 3 Neck: no JVD Heart: RRR Lungs: clear bilaterally Exremities: no edema Assessment/Plan Assessment/Plan * Patient is doing well post-operatively without evidence of myocardial ischemia or decompensated congestive heart failure. Continue aspirin, lisinopril and Metoprolol. Continue telemetry? Yes
--- NOTE | 2016-08-03 23:58 | NUR ---
END OF SHIFT VITALS-PATIENT WAS SATING 81-83% ON ROOM AIR, NO DISTRESS. PLACED ON NC, 2.5L, SATS WENT UP TO 93-94% RESPIRATORY (TOMMIE) CALLED, PLACED PATIENT ON 3L.
[2016-08-04 06:40] VITALS: BP 155/70
--- NOTE | 2016-08-04 08:41 | PN- General Surgery ---
See Addendum Subjective Subjective: abdominal pain. very little OOB. sat in chair for short while yesterday. no appetite, but drinking water. no n/v. no cp/sob. no flatus, no bm. requiring 3L NC with sats in low 90s- does not have pulm hx. Objective Vital Signs and I&Os Vital Signs Date Time Temp Pulse Resp B/P B/P Pulse O2 O2 Flow FiO2 Mean Ox Delivery Rate 08/04 0640 98.2 72 20 155/70 90 Nasal 3.0L Cannula 08/04 0000 Nasal 3.0L Cannula 08/03 2236 98.4 93 Nasal 2.5L Cannula 08/03 2130 76 132/60 08/03 195 99.3 08/03 1935 99.3 08/03 183 99.7 08/03 183 99.7 08/03 1442 98.6 62 18 112/60 92 Room Air 08/03 0901 108/50 Intake & Output 08/04 1600 08/04 0800 08/04 0000 08/03 1600 08/03 0800 08/03 0000 Intake Total 640 2792 895 5090 650 Output Total 575 450 400 500 600 Balance 65 550 500 540 50 Intake, IV 400 400 650 800 400 Intake, Oral 240 600 250 240 250 Number 0 Bowel Movements Output, Urine 575 450 400 500 600 Patient 140 lb Weight Physical Exam: Gen: NAD, awake, alert Card: s1s2 RRR Respiratory: +crackles bl posteriorly Abdomen: ttp throughout, most ttp RLQ, quiet bs, distended, dressings cdi Extremities: No edema, calves soft nt Current Medications: Current Medications Sig/Wyatt Start time Last Medication Dose Route Stop Time Status Admin Acetaminophen 1,000 MG Q6P PRN 08/02 1600 AC 08/03 N/A 1 UNIT IV 1836 Ampicillin Sodium/ 3,000 MG Q6H 08/02 2000 AC 08/04 Sulbactam Sodium IV 0145 Sodium Chloride 100 ML Aspirin Buffered 325 MG DAILY 08/03 1000 AC 08/03 PO 0851 Dextrose/Sodium 1,000 ML Q20H 08/03 1315 AC 08/03 Chloride IV 1418 Ezetimibe 10 MG DAILY 08/03 1000 AC 08/03 PO 0901 Heparin Sodium 5,000 UNIT Q8 08/02 2200 AC 08/04 (Porcine) SC 0553 Lisinopril 10 MG DAILY 08/03 1000 AC PO Metoprolol Tartrate 100 MG BID 08/02 2200 AC 08/03 PO 2130 Morphine Sulfate 2 MG Q4-6 PRN PRN 08/02 1600 AC 08/04 IV 0600 Morphine Sulfate 4 MG Q4-6 PRN PRN 08/02 1600 AC 08/04 IV 0205 Ondansetron HCl 4 MG Q6P PRN 08/02 1600 AC IV Potassium Chloride 20 MEQ Q10H 08/02 1600 DC 08/03 Dextrose/Sodium 1,000 ML IV 0608 Chloride Results Last 48 Hours of Labs: Laboratory Tests 08/04 08/03 0734 0610 Chemistry Sodium (137 - 145 mmol/L) Pending 138 Potassium (3.5 - 5.1 mmol/L) Pending 4.6 Chloride (98 - 107 mmol/L) Pending 104 Carbon Dioxide (22 - 30 mmol/L) Pending 26 Anion Gap (5 - 16) Pending 8 BUN (7 - 17 mg/dL) Pending 17 Creatinine (0.5 - 1.0 mg/dL) Pending 0.7 Estimated GFR (>60 ml/min) > 60 BUN/Creatinine Ratio (7 - 25 %) Pending 24.3 Glucose (65 - 99 mg/dL) 134 H Magnesium (1.6 - 2.3 mg/dL) 1.8 Hematology CBC w Diff Pending MAN DIFF ORDERED WBC (4.8 - 10.8 /CUMM) Pending 16.3 H RBC (4.20 - 5.40 /CUMM) Pending 3.57 L Hgb (12.0 - 16.0 G/DL) Pending 11.2 L Hct (37 - 47 %) Pending 33.8 L MCV (81.0 - 99.0 FL) Pending 94.8 MCH (27.0 - 31.0 PG) Pending 31.5 H RDW (11.5 - 14.5 %) Pending 14.4 Plt Count (130 - 400 /CUMM) Pending 185 MPV (7.4 - 10.4 FL) Pending 8.2 Gran % (42.2 - 75.2 %) 87.2 H Lymphocytes % (20.5 - 51.1 %) 7.0 L Monocytes % (1.7 - 9.3 %) 5.8 Eosinophils % (0 - 5 %) 0 Basophils % (0.0 - 2.0 %) 0 L Absolute Granulocytes (1.4 - 6.5 /CUMM) 14.2 H Segmented Neutrophils (42.2 - 75.2 %) 82 H Band Neutrophils (0.0 - 5.0 %) 7 H Absolute Lymphocytes (1.2 - 3.4 /CUMM) 1.1 L Lymphocytes (20.5 - 51.1 %) 7 L Monocytes (1.7 - 9.3 %) 4 Absolute Monocytes (0.10 - 0.60 /CUMM) 0.9 H Absolute Eosinophils (0.0 - 0.7 /CUMM) 0 Absolute Basophils (0.0 - 0.2 /CUMM) 0 Platelet Estimate (ADEQUATE) VERIFIED BY SMEAR Poikilocytosis 1+ Prospect Cells 1+ PUBS MCHC (33.0 - 37.0 G/DL) Pending 33.2 Assessment/Plan Assessment/Plan A: POD2 sp lap appy for perf'ed appendicitis, requiring 3L NC with O2 sats in low 90s with crackles, likely due to lack of deep breathing/abdominal pain and IVF, with no bowel fxn. P: CBC pdg OOB, ambulate IST, titrate o2 as tolerated, ?lasix HL continue clr liquids until tolerating more fu OR cx: gnr, prelim prn pain meds- needs now continue unasyn for active infection will dw attending Core Measures/Miscellaneous Venous Thromboembolism VTE Risk Factors: Age > 40, Surgery VTE Contraindications: No Contraindications VTE Diagnosis: No VTE Type: NONE VTE Confirmed by (Test): NONE Beta Hilary Is Beta Hilary a Home Med? No Antibiotics Is Patient on Antibiotics? Yes If Yes: infection
[2016-08-04 08:46] LABS: ABSOLUTE BASOPHIL COUNT 0 /CUMM (0.0-0.2); ABSOLUTE EOSINOPHIL COUNT 0.2 /CUMM (0.0-0.7); ABSOLUTE GRANULOCYTE CT 12.8 /CUMM (1.4-6.5); ABSOLUTE LYMPH COUNT 1.9 /CUMM (1.2-3.4); ABSOLUTE MONOCYTE COUNT 0.7 /CUMM (0.10-0.60); BASOPHIL % 0.2 % (0.0-2.0); EOSINOPHIL % 1.3 % (0-5); MEAN CORPUSCULAR HGB 31.4 PG (27.0-31.0); MEAN CORPUSCULAR HGB CONC 33.5 G/DL (33.0-37.0); MEAN CORPUSCULAR VOLUME 93.8 FL (81.0-99.0); MEAN PLATELET VOLUME 8.3 FL (7.4-10.4); PLATELET COUNT 200 /CUMM (130-400); RBC DISTRIBUTION WIDTH 14.7 % (11.5-14.5); RED BLOOD CELL CT 3.63 /CUMM (4.20-5.40); WHITE BLOOD CELL COUNT 15.6 /CUMM (4.8-10.8)
[2016-08-04 15:08] VITALS: BP 126/60
--- NOTE | 2016-08-04 16:09 | RADIOLOGY REPORT ---
EXAMINATION: XR PORTABLE CHEST CLINICAL INFORMATION: Hypoxemia. COMPARISON: Chest x-ray 08/02/2016. TECHNIQUE: Portable frontal view of the chest was obtained. FINDINGS: Single AP view of the chest demonstrates pulmonary hypoinflation. There is a small right-sided pleural effusion. There is right basilar opacification and linear opacities within the left lung base. Bibasilar opacities are nonspecific and could reflect atelectasis. Superimposed infection within the right lung base cannot be excluded in the appropriate clinical setting. Cardiac mediastinal contours are stable. No pneumothoraces. No visible acute osseous abnormality. IMPRESSION: Interval development of a small right-sided pleural effusion. Right basilar opacification likely reflects atelectasis. Superimposed infection cannot be excluded in the appropriate clinical setting.
--- NOTE | 2016-08-04 19:08 | NUR ---
PATIENT AMBULATING MORE TODAY, WITH SUPERVISION. PAIN MANAGEABLE WITH ROXICODONE. LUNGS CRACKLY, BEING MONITORED BY SURGICAL PA. ONE TIME DOSE OF 20MG IV LASIX GIVEN THIS SHIFT. ENCOURAGE IST. ABD SOFT/DISTENDED. SAFETY MAINTAINED, NEEDS WITHIN REACH.
[2016-08-04 22:00] VITALS: BP 126/64
[2016-08-05 06:21] VITALS: BP 134/60
--- NOTE | 2016-08-05 06:54 | PN- General Surgery ---
See Addendum Subjective Subjective: POD#3 S/P LAP APPY(PERFORATED) FEELING MUCH BETTER TODAY NO MAJOR ISSUES OVERNIGHT URINE OUTPUT INCREASED WITH IV LASIX DENIES CP, SOB, NO N+V WITH FULL LIQUID DIET +FLATUS, NO BM O2SAT 92% ON 3L Objective Vital Signs and I&Os Vital Signs Date Time Temp Pulse Resp B/P B/P Pulse O2 O2 Flow FiO2 Mean Ox Delivery Rate 08/05 0621 98.1 70 20 134/60 92 08/05 0000 Nasal 3.0L Cannula 08/04 2200 98.3 69 18 126/64 94 Nasal 3.0L Cannula 08/04 2100 69 126/64 08/04 1600 92 Nasal 3.0L Cannula 08/04 1508 98.0 70 92 126/60 92 Nasal 2.0L Cannula 08/04 1033 99.2 08/04 1027 72 155/70 08/04 1027 72 155/70 08/04 0800 96 Nasal 3.0L Cannula Intake & Output 08/05 0800 08/05 0000 08/04 1600 08/04 0800 08/04 0000 08/03 1600 Intake Total 720 646 681 8497 900 Output Total 150 1450 700 575 450 400 Balance -150 -730 150 65 550 500 Intake, IV 120 250 400 400 650 Intake, Oral 600 600 240 600 250 Number 0 Bowel Movements Output, Urine 150 1450 700 575 450 400 Physical Exam: CV: RRR LUNGS: CLEAR ABD: SOFTLY DISTENDED BS ACTIVE, LOWER ABD TENDER TO PALP WOUNDS C/D/I EXT: WARM, NO EDEMA Assessment/Plan Assessment/Plan SURGICALLY IMPROVING PLAN CONT IV ABX OOB/AMBULATE WEAN O2 ADVANCE DIET PER ATTENDING HOME D/C PLANNING Core Measures/Miscellaneous Venous Thromboembolism VTE Risk Factors: Age > 40, Surgery VTE Contraindications: No Contraindications VTE Diagnosis: No VTE Type: NONE VTE Confirmed by (Test): NONE Beta Hilary Is Beta Hilary a Home Med? No Antibiotics Is Patient on Antibiotics? Yes If Yes: infection
[2016-08-05 08:35] LABS: ABSOLUTE BASOPHIL COUNT 0 /CUMM (0.0-0.2); ABSOLUTE EOSINOPHIL COUNT 0.4 /CUMM (0.0-0.7); ABSOLUTE GRANULOCYTE CT 9.3 /CUMM (1.4-6.5); ABSOLUTE LYMPH COUNT 1.5 /CUMM (1.2-3.4); ABSOLUTE MONOCYTE COUNT 0.7 /CUMM (0.10-0.60); BASOPHIL % 0.4 % (0.0-2.0); EOSINOPHIL % 3.6 % (0-5); GRANULOCYTE % 77.6 % (42.2-75.2); HEMATOCRIT 31.1 % (37-47); MEAN CORPUSCULAR HGB 31.3 PG (27.0-31.0); MEAN CORPUSCULAR HGB CONC 33.3 G/DL (33.0-37.0); MEAN PLATELET VOLUME 8.2 FL (7.4-10.4); PLATELET COUNT 199 /CUMM (130-400); RBC DISTRIBUTION WIDTH 14.5 % (11.5-14.5); RED BLOOD CELL CT 3.31 /CUMM (4.20-5.40)
[2016-08-05 14:53] VITALS: BP 140/60
[2016-08-05 22:45] VITALS: BP 132/60
[2016-08-06 07:27] VITALS: BP 160/78
[2016-08-06 07:49] LABS: ABSOLUTE BASOPHIL COUNT 0 /CUMM (0.0-0.2); ABSOLUTE EOSINOPHIL COUNT 0.5 /CUMM (0.0-0.7); ABSOLUTE LYMPH COUNT 1.4 /CUMM (1.2-3.4); ABSOLUTE MONOCYTE COUNT 0.7 /CUMM (0.10-0.60); BASOPHIL % 0.3 % (0.0-2.0); EOSINOPHIL % 4.8 % (0-5); GRANULOCYTE % 73.3 % (42.2-75.2); HEMATOCRIT 29.9 % (37-47); MEAN CORPUSCULAR HGB 30.9 PG (27.0-31.0); MEAN CORPUSCULAR HGB CONC 33.7 G/DL (33.0-37.0); MEAN CORPUSCULAR VOLUME 91.6 FL (81.0-99.0); MEAN PLATELET VOLUME 8.1 FL (7.4-10.4); PLATELET COUNT 219 /CUMM (130-400); RED BLOOD CELL CT 3.26 /CUMM (4.20-5.40); WHITE BLOOD CELL COUNT 9.5 /CUMM (4.8-10.8)
[2016-08-06 08:30] VITALS: BP 128/60
[2016-08-06 08:31] VITALS: BP 128/60
[2016-08-06] MEDS ORDERED: CIPRO500 M1 PO (08:59)
[2016-08-06] MEDS ORDERED: FLAGYL500 MG PO (08:59)
--- NOTE | 2016-08-06 09:03 | Patient Discharge Instructions ---
Discharge Instructions General Discharge Information You were seen/treated for: Perforated appendix You had these procedures: Laparoscopic appendectomy Watch for these problems: Increasing pain despite the use of pain medications. Increasing redness, warmth, or swelling in abdomen. Drainage from incisions. Inability to urinate, pass gas, or move bowels. Persistent nausea and or vomitting. Fever greater than 101.5 degrees. Do not soak the wound: Yes Other wound care: Keep incisions clean and dry Diet Continue normal diet: Yes Recommended Diet: Regular Additional DIET Information: Advance diet as tolerated Activity Full Activity/No Limits: No Activity Self Limited: Yes Pounds, do NOT lift more than: 10 Acute Coronary Syndrome Inclusion Criteria At DC or during hospital stay patient has or had the following: ACS DIAGNOSIS No Discharge Core Measures Meds if any: Prescribed or Continued at Discharge Meds if any: NOT Prescribed or Continued at Discharge Congestive Heart Failure Inclusion Criteria At DC or during hospital stay patient has or had the following: CHF DIAGNOSIS No Discharge Core Measures Meds if any: Prescribed or Continued at Discharge Meds if any: NOT Prescribed or Continued at Discharge Cerebrovascular accident Inclusion Criteria At DC or during hospital stay patient has or had the following: CVA/TIA Diagnosis No Discharge Core Measures Meds if any: Prescribed or Continued at Discharge Meds if any: NOT Prescribed or Continued at Discharge Venous thromboembolism Inclusion Criteria VTE Diagnosis No VTE Type NONE VTE Confirmed by (Test) NONE Discharge Core Measures - Per Current guidelines, there needs to be overlap - treatment for the first 5 days of Warfarin therapy. - If discharged on Warfarin prior to 5 days of - overlap therapy, the patient will need to be - assessed for post discharge needs including - *Post discharge parental anticoagulation - *Warfarin and/or parental anticoagulation education - *Follow up date to check INR post discharge At least 5 days overlap therapy as Inpatient No Meds if any: Prescribed or Continued at Discharge Note: Overlap Therapy is Warfarin and Anticoagulant Meds if any: NOT Prescribed or Continued at Discharge
[2016-08-06] MEDS ORDERED: PERCOCET 5-3251 EACH PO (09:16)
--- NOTE | 2016-08-06 09:19 | PN- General Surgery ---
See Addendum Subjective Subjective: No acute overnight events reported. Pain managed, tolerating po. Has had bm. Denies chest pain, shortness of breath and difficulty breathing. Objective Vital Signs and I&Os Vital Signs Date Time Temp Pulse Resp B/P B/P Pulse O2 O2 Flow FiO2 Mean Ox Delivery Rate 08/06 0831 67 128/60 08/06 0830 128/60 08/06 0727 97.4 67 20 160/78 92 Room Air 08/05 2245 98.5 83 18 132/60 92 Room Air 08/05 2216 78 142/68 08/05 1453 98.6 64 20 140/60 95 Nasal 2.0L Cannula 08/05 1418 97 Nasal 2.0L Cannula 08/05 1412 Nasal 3.0L Cannula Intake & Output 08/06 1600 08/06 0800 08/06 0000 08/05 1600 08/05 0800 08/05 0000 Intake Total 60 240 745 720 Output Total 300 350 0 150 1450 Balance -240 -110 745 -150 -730 Intake, IV 225 120 Intake, Oral 60 240 520 600 Number 1 1 0 Bowel Movements Output, Urine 300 350 0 150 1450 Patient 140 lb Weight Physical Exam: General: AAO x3, no acute distress Cardiac: RRR, s1s2 Pulm: CTA bilaterally ABD: Non-tender, non-distended Extremities: Moves all extremities, distal sensation intact. Skin warm and well perfused. DP palpable bilaterally, bilateral calves soft and non-tender Assessment/Plan Assessment/Plan This is an 89 year old female who was admitted to hospital for iv abx for perforated appendix and is pod 4 s/p laparoscopic appendectomy. Clinically has improved, bowel function has returned, pain is well controlled. Antibiotic therapy chosen based on microbiology. -Plan: DC to home today on po ciprofloxacin and flagyl -Pain control with percocet on dc -Follow up with Dr. Alvarado in 2 weeks Core Measures/Miscellaneous Venous Thromboembolism VTE Risk Factors: Age > 40, Surgery VTE Contraindications: No Contraindications VTE Diagnosis: No VTE Type: NONE VTE Confirmed by (Test): NONE Beta Hilary Is Beta Hilary a Home Med? No Antibiotics Is Patient on Antibiotics? Yes If Yes: infection
--- NOTE | 2016-08-06 09:39 | Surgical Discharge Summary ---
Visit Information Visit Dates Admission Date: 08/02/16 Discharge Date: 08/06/16 History of Present Illness Chief Complaint: abdominal pain Medical History Blood Transfusion Hx: No Neurological: NONE EENT: NONE Cardiovascular: hypertension, hyperlipidemia, STENTS 14 YRS AGO Respiratory: NONE Gastrointestinal: NONE Hepatic: NONE Renal: NONE Musculoskeletal: NONE Psychiatric: NONE Endocrine: NONE History of MRSA: No History of VRE: No History of CDIFF: No Isolation History: Standard Surgical History Pertinent Surgical History: appendectomy, hernia repair-inguinal Psychosocial History Where Do You Live? Home Who Do You Live With? Spouse What is Your Primary Language? Icelandic Review of Systems: not assessed at d/c Hospital Course Course Attending Physician: JONO HADDAD MD Primary Care Physician: BISI DOBSON,[facility] Course: admitted after surgery for perforated appendicitis with peritonitis. she progressed slowly with return of bowel function pod 2. diet was advanced. intraoperative cultures show resistent ecoli and pseudomonas. abx tailored. she was diuresed due to increasing 02 demands and responded appropriately. Allergies: Coded Allergies: No Known Allergies (08/02/16) Significant Procedures: laparoscopic appendectomy Disposition Summary Disposition Principal Diagnosis: acute appendicitis with peritonitis Additional Diagnosis: chf Discharge Disposition: home or self care Discharge Instructions General Discharge Information Code Status: Full Code Patient's Diet: regular Patient's Activity: no lifting Follow-Up Instructions/Appts: 2 weeks Medications at Discharge Discharge Medications: Continue taking these medications: Atorvastatin Calcium (Lipitor) 80 MG TABLET 1 Tablet ORAL DAILY Qty = 90 Metoprolol Tartrate (Metoprolol Tartrate) 100 MG TABLET 1 Tablet ORAL TWICE DAILY Qty = 180 Ezetimibe (Zetia) 10 MG TABLET 1 Tablet ORAL DAILY Qty = 90 Quinapril HCl (Quinapril HCl) 10 MG TABLET 1 Tablet ORAL DAILY Qty = 90 Aspirin (Ecotrin*) 325 MG TABLET.DR 1 Tablet ORAL DAILY Multivitamin (Multivitamins) 1 EACH CAPSULE 1 Tablet ORAL DAILY Calcium Carbonate (TUMS) (Unknown Strength) TAB.CHEW Unknown Dose Vitamin B Complex (B Complex) (Unknown Strength) TABLET Unknown Dose Folic Acid (Folic Acid) (Unknown Strength) TABLET Unknown Dose Ascorbic Acid (Vitamin C) (Unknown Strength) CAPSULE.ER Unknown Dose [OCURITE] (Unknown Strength) Unknown Dose [ADULT 50+] (Unknown Strength) Unknown Dose Start taking the following new medications: Ciprofloxacin HCl (Cipro) 500 MG TABLET 1 Tablet ORAL TWICE DAILY Qty = 14 No Refills Metronidazole (Flagyl) 500 MG TABLET 1 Tablet ORAL THREE TIMES DAILY Qty = 21 No Refills Oxycodone HCl/Acetaminophen (Percocet 5-325 MG Tablet) 5 MG-325 MG TABLET 1-2 Tablet ORAL Q4-6H as needed for PAIN Qty = 36 No Refills Copies To: LALIT MATHEWS MD
== END 2016-08-06 11:00 | DRG 340 ==
LOC: ERH 04:41 → PACUH 15:14 → 2NB 15:14 → PACUH 16:22 → ENRESERV 16:45 → ENTRNSPT 17:05 → 2NB 17:28 → CMPTRNSPT 17:38 → ENPENDDIS 08-06 09:22 → 2NB 08-06 11:00
PROVIDERS: Emergency Medicine; Physician Assistant; Physician Assistant Surgical; ADMIT Surgery
PROC: 0DTJ4ZZ Resection of Appendix, Percutaneous Endoscopic Approach (ICD-10-PCS; principal; 2016-08-02)
PROC: 3E0T3CZ (ICD-10-PCS; 2016-08-02)
DX: K35.3 Acute appendicitis with localized peritonitis (principal); I11.0 Hypertensive heart disease with heart failure; I50.9 Heart failure, unspecified; I45.10 Unspecified right bundle-branch block; E78.5 Hyperlipidemia, unspecified; I44.0 Atrioventricular block, first degree; Z95.5 Presence of coronary angioplasty implant and graft
CPT/HCPCS: 2NBSP; 87070; 87075; 87184; 36415; 81001; 82436; 87071; 87147; 88304; 93005; 93010; 96361; 96374; 96375; 96376; 97161-GP; 97530-GO; J0131; J1644; J1940; J2185; J2405; J2550; J3010; J7042; S5012

== ENCOUNTER 2016-08-08 06:08 | Emergency (ER) | payer OTHER ==
[~2016-08-08] VITALS: Ht 160 cm; Wt 63.5 kg
[~2016-08-08 06:08] MED LIST: ASPIRIN EC325 M2 PO; B COMPLEX1 EACH; CIPRO500 M1 PO; FLAGYL500 MG PO; FOLIC ACID1 M1; LIPITOR80 M1 PO; METOPROLOL TAR100 M1 PO; MULTIVITAMINS1 EAC8 PO; PERCOCET 5-3251 EACH PO; QUINAPRIL HCL10 M1 PO; TUMS200 MG; VITAMIN C500 M7; ZETIA10 M1 PO; [UNRECOGNIZED DRUG - OTHER]; [UNRECOGNIZED DRUG - OTHER]
--- NOTE | 2016-08-08 06:36 | ED GI/GU/ABDOMINAL COMPLAINT ---
History of Present Illness General Chief Complaint: General Adult Stated Complaint: NAUSEA AND LOOSE STOOL?MED REACTION TO ANTIBIOTICS Source: patient, family Exam Limitations: no limitations Vital Signs & Intake/Output Vital Signs & Intake/Output Vital Signs Date Time Temp Pulse Resp B/P B/P Pulse O2 O2 Flow FiO2 Mean Ox Delivery Rate 08/08 0636 97.1 66 16 166/70 94 Room Air Allergies Coded Allergies: No Known Allergies (08/02/16) Reconcile Medications [ADULT 50+] (Unknown Strength) (Unknown Dose) UNKNOWN (Reported) Ascorbic Acid (Vitamin C) (Unknown Strength) CAPSULE.ER (Unknown Dose) SUPPLEMENT (Reported) Aspirin (Ecotrin*) 325 MG TABLET.DR 1 TAB PO DAILY HEART HEALTH (Reported) Atorvastatin Calcium (Lipitor) 80 MG TABLET 1 TAB PO DAILY CHOL (Reported) Calcium Carbonate (TUMS) (Unknown Strength) TAB.CHEW (Unknown Dose) SUPPLEMENT (Reported) Ciprofloxacin HCl (Cipro) 500 MG TABLET 1 TAB PO BID infection Ezetimibe (Zetia) 10 MG TABLET 1 TAB PO DAILY CHOL (Reported) Folic Acid (Unknown Strength) TABLET (Unknown Dose) SUPPLEMENT (Reported) Metoprolol Tartrate 100 MG TABLET 1 TAB PO BID HTN (Reported) Metronidazole (Flagyl) 500 MG TABLET 1 TAB PO TID infection Multivitamin (Multivitamins) 1 EACH CAPSULE 1 TAB PO DAILY SUPPLEMENT ( Reported) [OCURITE] (Unknown Strength) (Unknown Dose) UNKNOWN (Reported) Oxycodone HCl/Acetaminophen (Percocet 5-325 MG Tablet) 5 MG-325 MG TABLET 1-2 TAB PO Q4-6H PRN PAIN Quinapril HCl 10 MG TABLET 1 TAB PO DAILY HTN (Reported) Vitamin B Complex (B Complex) (Unknown Strength) TABLET (Unknown Dose) SUPPLEMENT (Reported) Triage Note: PT TO ED WITH COMPLAINTS OF NAUSEA AND SOME VOMITING X1 DAY. PT HAD APPENDECTOMY LAST WEEK AND WAS SENT HOME WITH PERCOCET, CIPRO AND FLAGYL. PT STATES THE N/V CAME ON AFTER TAKING THE ANTIBIOTICS. PT ALSO COMPLAINS OF DIARRHEA. Triage Nurses Notes Reviewed? yes ? n Is pt currently ? No Onset: Gradual Duration: day(s): Timing: recent history Quality/Severity: cramping Location: generalized abdomen, left lower quadrant, right lower quadrant Radiation: chest Prior Abdominal Problems: none Modifying Factors: Worsens With: defecating. Associated Symptoms: abdominal pain, diarrhea HPI: 89-year-old woman status post ruptured appendectomy 6 days ago, presents with diarrhea, decreased by mouth intake, crampy abdominal pain. She states that she has been taking Cipro and Flagyl since discharge over the weekend. She states, "ever since I've been taking these antibiotics my stool is really loose. My stool kind of sports out." She notes approximately 1 bowel movement every 2-3 hours. She has no fever chills dysuria or vaginal discharge chest pain or shortness of breath. She is otherwise well and has no other concerns. (DREW DOBSON,RONALD Lozada) Past History Travel History Traveled to [place] past 21 day No Medical History Any Pertinent Medical History? see below for history Neurological: NONE EENT: NONE Cardiovascular: hypertension, hyperlipidemia, STENTS 14 YRS AGO Respiratory: NONE Gastrointestinal: NONE Hepatic: NONE Renal: NONE Musculoskeletal: NONE Psychiatric: NONE Endocrine: NONE History of MRSA: No History of VRE: No History of CDIFF: No Surgical History Surgical History: appendectomy, hernia repair-inguinal Psychosocial History Who do you live with Spouse What is your primary language Sammarinese Family History Hx Contributory? No (RONALD RUSSELL MD) Review of Systems Review of Systems Constitutional: Reports: no symptoms. EENTM: Reports: no symptoms. Respiratory: Reports: no symptoms. Cardiovascular: Reports: no symptoms. GI: Reports: no symptoms. Genitourinary: Reports: no symptoms. Musculoskeletal: Reports: no symptoms. Skin: Reports: no symptoms. Neurological/Psychological: Reports: no symptoms. Hematologic/Endocrine: Reports: no symptoms. Immunologic/Allergic: Reports: no symptoms. All Other Systems: Reviewed and Negative (RONALD RUSSELL MD) Physical Exam Physical Exam General Appearance: well developed/nourished, mild distress Head: atraumatic, normal appearance Eyes: Bilateral: normal appearance. Ears, Nose, Throat, Mouth: hearing grossly normal Neck: normal inspection, supple, full range of motion Respiratory: normal breath sounds, chest non-tender, no respiratory distress, quiet respiration, lungs clear Cardiovascular: regular rate/rhythm Gastrointestinal: normal bowel sounds, soft, non-tender Back: normal inspection Extremities: normal range of motion Neurologic/Psych: no motor/sensory deficits, awake, alert, oriented x 3 Skin: intact, normal color, warm/dry Core Measures ACS in differential dx? No Severe Sepsis Present: No Septic Shock Present: No (DREW DOBSON,RONALD Lozada) Progress Differential Diagnosis: C. difficile versus antibiotic related bacteria versus side effect versus other Plan of Care: Orders Procedure Date/time Status LACTIC ACID 08/09 935 Active CULTURE,STOOL 08/08 648 Active C.DIFFICILE 08/08 648 Active LACTIC ACID 08/09 635 Complete TROPONIN LEVEL 08/08 624 Complete LIPASE 08/08 624 Complete HEPATIC FUNCTION PANEL 08/08 624 Complete CBC WITHOUT DIFFERENTIAL 08/08 624 Complete BASIC METABOLIC PANEL 08/08 624 Complete AMYLASE 08/08 624 Complete EKG 08/08 624 Active Laboratory Tests 08/08/16637: Lactic Acid 1.3 08/08/16637: Anion Gap 13, Estimated GFR > 60, BUN/Creatinine Ratio 23.3, Glucose 99, Calcium 8.9, Total Bilirubin 0.9, Direct Bilirubin 0.3, AST 135 H, ALT 146 H, Alkaline Phosphatase 289 H, Troponin I < 0.01, Total Protein 6.2 L, Albumin 3.4 L, Amylase 77, Lipase 193, CBC w Diff NO MAN DIFF REQ, RBC 3.83 L, MCV 92.2, MCH 30.9, RDW 14.3, MPV 7.3 L, Gran % 74.9, Lymphocytes % 13.0 L, Monocytes % 8.2, Eosinophils % 3.6, Basophils % 0.3, Absolute Granulocytes 6.7 H, Absolute Lymphocytes 1.2, Absolute Monocytes 0.7 H, Absolute Eosinophils 0.3, Absolute Basophils 0, PUBS MCHC 33.5 Microbiology 08/08 745 STOOL: Clostridium difficile Toxin A & B - RECD 08/08 745 STOOL: Stool Culture - RECD Initial ED EKG: RBBB, no change from prior Hand-Off Endorsed To: JOSUE CALIX MD Endorsed Time: 0700 Pending: consult (DREW DOBSON,RONALD Lozada) Comments: Discussed with Dr. Alvarado. He will follow up on the liver enzymes as an outpatient. Patient has absolutely no pain in the right upper quadrant. Patient advised to stop the Cipro and Flagyl and to start Levaquin for 5 days to complete a 1 week course of antibiotics. (FIFI DOBSON,JOSUE Oseguera) Departure Departure Condition: Stable Departure Forms: Customer Survey General Discharge Information (DREW DOBSON,RONALD Lozada) Departure Disposition: HOME OR SELF CARE Clinical Impression Primary Impression: Diarrhea Secondary Impressions: Elevated LFTs, Medication side effect Referrals: BISI DOBSON,LALIT (PCP/Family) CATIE DOBSON,JONO Guadalupe Additional Instructions: Stop the Cipro and Flagyl. Take Levaquin one pill a day for the next 5 days. Follow-up with Dr. Alvarado. Return if symptoms worsen or for any concerns. Prescriptions: Current Visit Scripts Levofloxacin (Levaquin) 1 TAB PO DAILY #5 TAB (FIFI DOBSON,JOSUE Oseguera)
[2016-08-08 07:08] LABS: ABSOLUTE BASOPHIL COUNT 0 /CUMM (0.0-0.2); ABSOLUTE EOSINOPHIL COUNT 0.3 /CUMM (0.0-0.7); ABSOLUTE GRANULOCYTE CT 6.7 /CUMM (1.4-6.5); ABSOLUTE LYMPH COUNT 1.2 /CUMM (1.2-3.4); ABSOLUTE MONOCYTE COUNT 0.7 /CUMM (0.10-0.60); BASOPHIL % 0.3 % (0.0-2.0); EOSINOPHIL % 3.6 % (0-5); GRANULOCYTE % 74.9 % (42.2-75.2); MEAN CORPUSCULAR HGB 30.9 PG (27.0-31.0); MEAN CORPUSCULAR HGB CONC 33.5 G/DL (33.0-37.0); MEAN CORPUSCULAR VOLUME 92.2 FL (81.0-99.0); MEAN PLATELET VOLUME 7.3 FL (7.4-10.4); RBC DISTRIBUTION WIDTH 14.3 % (11.5-14.5); RED BLOOD CELL CT 3.83 /CUMM (4.20-5.40)
[2016-08-08 07:13] LABS: HEMATOCRIT 35.3 % (37-47); PLATELET COUNT 341 /CUMM (130-400)
[2016-08-08] MEDS ORDERED: LEVAQUIN500 M1 PO (08:17)
[2016-08-08 09:25] VITALS: BP 145/74
== END 2016-08-08 09:26 ==
LOC: ERH 06:08
PROVIDERS: Pediatrics
DX: T36.8X5A Adverse effect of other systemic antibiotics, initial encounter (principal); T37.3X5A Adverse effect of other antiprotozoal drugs, initial encounter; R19.7 Diarrhea, unspecified; R79.89 Other specified abnormal findings of blood chemistry; R10.31 Right lower quadrant pain; R10.32 Left lower quadrant pain
CPT/HCPCS: 87045; 93005; 93010; 96374; J2405

== ENCOUNTER 2016-08-09 08:21 | Emergency (ER) | payer OTHER ==
[~2016-08-09] VITALS: Ht 157.5 cm; Wt 63.5 kg
[~2016-08-09 08:21] MED LIST changes: +LEVAQUIN500 M1 PO
--- NOTE | 2016-08-09 08:57 | ED GENERAL ADULT ---
History of Present Illness General Chief Complaint: General Adult Stated Complaint: S/P SURG/SEEN HERE YESTERDAY/? MED REACTION Source: patient, family, old records Exam Limitations: no limitations Vital Signs & Intake/Output Vital Signs & Intake/Output Vital Signs Date Time Temp Pulse Resp B/P B/P Pulse O2 O2 Flow FiO2 Mean Ox Delivery Rate 08/09 1114 97.2 70 18 168/88 92 Room Air 08/09 0825 98.4 104 16 176/89 94 Room Air Allergies Coded Allergies: No Known Allergies (08/02/16) Reconcile Medications [ADULT 50+] (Unknown Strength) (Unknown Dose) UNKNOWN (Reported) Ascorbic Acid (Vitamin C) (Unknown Strength) CAPSULE.ER (Unknown Dose) SUPPLEMENT (Reported) Aspirin (Ecotrin*) 325 MG TABLET.DR 1 TAB PO DAILY HEART HEALTH (Reported) Atorvastatin Calcium (Lipitor) 80 MG TABLET 1 TAB PO DAILY CHOL (Reported) Calcium Carbonate (TUMS) (Unknown Strength) TAB.CHEW (Unknown Dose) SUPPLEMENT (Reported) Ezetimibe (Zetia) 10 MG TABLET 1 TAB PO DAILY CHOL (Reported) Folic Acid (Unknown Strength) TABLET (Unknown Dose) SUPPLEMENT (Reported) Levofloxacin (Levaquin) 500 MG TABLET 1 TAB PO DAILY POST SURGICAL Metoprolol Tartrate 100 MG TABLET 1 TAB PO BID HTN (Reported) Multivitamin (Multivitamins) 1 EACH CAPSULE 1 TAB PO DAILY SUPPLEMENT ( Reported) [OCURITE] (Unknown Strength) (Unknown Dose) UNKNOWN (Reported) Oxycodone HCl/Acetaminophen (Percocet 5-325 MG Tablet) 5 MG-325 MG TABLET 1-2 TAB PO Q4-6H PRN PAIN Quinapril HCl 10 MG TABLET 1 TAB PO DAILY HTN (Reported) Vitamin B Complex (B Complex) (Unknown Strength) TABLET (Unknown Dose) SUPPLEMENT (Reported) Triage Note: PT STATES THAT SHE WAS SEEN HERE YESTERDAY FOR METALIC TASTE IN HER MOUTH UNABLE TO EAT SINCE LAST FRIDAY, PT HAD HER APPENDIX OUT LAST FRIDAY AND WAS STARTED ON CIPRO AND FLAGYL, PT STOPPED TAKING THOSE 2 DAYS AGO AND THEN WAS STARTED ON NEW ABT YESTERDAY AND PT STATES THAT IT IS DOING THE SAME THING , PTS DAUGHTER UPSET AND STATES THAT SHE CAN NOT KEEP GOING ON LIKE THIS, STATES THAT SHE IS NOT EATING OR SLEEPING. Triage Nurses Notes Reviewed? yes Onset: Abrupt Duration: day(s): (3-4) Timing: single episode today Severity: mild, moderate Severity Numbers: 7 No Modifying Factors: none Associated Symptoms: NAUSEA, DECREASED APPETITE, METALLIC TASTE, DIARRHEA LMP (ages 10-50): post menopausal : No Patient currently breastfeeds: No HPI: 89-year-old female with history of hypertension hyperlipidemia CAD presents 1 week status post laparoscopic appendectomy with complaints of nausea and decreased appetite metallic taste and diarrhea. Patient reports symptoms started after she was discharged from the hospital after her appendectomy when she started taking Cipro and Flagyl by mouth. Patient reports a medially after taking oral antibiotics she gets she developed a metallic taste in her mouth along with nausea vomiting and watery diarrhea. Patient denies any blood in her vomit or stool. She has not been eating much or drinking fluids. Seen in the ED yesterday for same symptoms and Cipro Flagyl will switch to Levaquin. Patient reports she was initially feeling better after stopping Cipro and Flagyl until she took her first dose of Levaquin. Within minutes after her first dose of Levaquin her symptoms returned. She currently denies any abdominal pain back pain fevers chest pain or shortness of breath. She is feeling well otherwise. (KOKO BOYER PA-C) Past History Travel History Traveled to [place] past 21 day No Medical History Any Pertinent Medical History? see below for history Neurological: NONE EENT: NONE Cardiovascular: hypertension, hyperlipidemia, STENTS 14 YRS AGO Respiratory: NONE Gastrointestinal: NONE Hepatic: NONE Renal: NONE Musculoskeletal: NONE Psychiatric: NONE Endocrine: NONE History of MRSA: No History of VRE: No History of CDIFF: No Surgical History Surgical History: appendectomy, hernia repair-inguinal Psychosocial History Who do you live with Spouse What is your primary language Malaysian Tobacco Use: Never used ETOH Use: denies use Illicit Drug Use: denies illicit drug use Family History Hx Contributory? Yes (KOKO BOYER PA-C) Review of Systems Review of Systems Constitutional: Reports: see HPI, weakness. EENTM: Reports: no symptoms. Respiratory: Reports: no symptoms. Cardiovascular: Reports: no symptoms. GI: Reports: see HPI, bloating, diarrhea, nausea, vomiting. Genitourinary: Reports: no symptoms. Musculoskeletal: Reports: no symptoms. Skin: Reports: no symptoms. Neurological/Psychological: Reports: no symptoms. Hematologic/Endocrine: Reports: no symptoms. Immunologic/Allergic: Reports: no symptoms. All Other Systems: Reviewed and Negative (KOKO BOYER PA-C) Physical Exam Physical Exam General Appearance: well developed/nourished, no apparent distress, alert, awake , mild distress Head: atraumatic, normal appearance Eyes: Bilateral: normal appearance, PERRL, EOMI. Ears, Nose, Throat: normal pharynx, normal ENT inspection, hearing grossly normal Neck: normal inspection, supple, full range of motion Respiratory: normal breath sounds, chest non-tender, no respiratory distress, lungs clear Cardiovascular: regular rate/rhythm, edema Peripheral Pulses: 2+ dorsalis pedis (R), 2+ dorsalis pedis (L) Gastrointestinal: normal bowel sounds, soft, non-tender, no organomegaly Back: normal inspection, normal range of motion, no vertebral tenderness Extremities: normal inspection, normal capillary refill, normal range of motion, no edema Neurologic/Psych: no motor/sensory deficits, awake, alert, oriented x 3, normal gait, normal mood/affect Skin: intact, normal color, warm/dry Core Measures ACS in differential dx? No CVA/TIA Diagnosis: No Severe Sepsis Present: No Septic Shock Present: No (KOKO BOYER PA-C) Progress Differential Diagnoses Medication reaction, viral gastritis, C. difficile, cyst, sepsis Initial ED EKG: none (KOKO BOYER PA-C) Plan of Care: Current Medications Sig/Wytat Start time Last Medication Dose Stop Time Status Admin Sodium Chloride 500 ML BOLUS ONE 08/09 1015 AC 08/09 (Normal Saline 0.9%) 08/09 1114 1020 Patient seen and evaluated. At this time it appears that patient is having a reaction to by mouth antibiotics. Abdomen is soft and nontender patient appears well overall. Case discussed with Dr. Alvarado who performed the surgery [address] Alvarado feels that it is okay to stop antibioticS altogether at this point. She'll be given 1000 mL of normal saline IV 1. Discharged home and will follow-up with Dr. Alvarado as an outpatient. A case management consult was also put in a patient will be receiving evaluation by a visiting nurse. Case discussed with Dr. Mcgregor and he is in agreement with the plan. Discussed the situation with the patient and her family and they're also in agreement with the plan. (KOKO BOYER PA-C) Departure Departure Disposition: HOME OR SELF CARE Condition: Stable Clinical Impression Primary Impression: Medication reaction Qualifiers: Encounter type: subsequent encounter Qualified Code: T88.7XXD - Unspecified adverse effect of drug or medicament, subsequent encounter Referrals: LALIT MATHEWS MD (PCP/Family) Additional Instructions: Stop taking oral antibiotics. Rest drink plenty of fluids and eat bland foods such as bananas rice applesauce and toast. Monitor symptoms return to the emergency department for worsening pain or fevers. Follow up with Dr. Alvarado as an outpatient as scheduled. Departure Forms: Customer Survey General Discharge Information (KOKO BOYER PA-C) PA/PASTING MACHINE OFFBEARER Co-Sign Statement Statement: ED Attending supervision documentation- [X] I saw and evaluated the patient. I have also reviewed all the pertinent lab results and diagnostic results. I agree with the findings and the plan of care as documented in the PA's/PASTING MACHINE OFFBEARER's documentation. [] I have reviewed the ED Record and agree with the PA's/PASTING MACHINE OFFBEARER's documentation. [] Additions or exceptions (if any) to the PAs/PASTING MACHINE OFFBEARER's note and plan are summarized below: [] (DACIA MCGREGOR DO) Critical Care Note Critical Care Note Critical Care Time: non-applicable (KOKO BOYER PA-C)
[2016-08-09 11:14] VITALS: BP 168/88
== END 2016-08-09 11:34 ==
LOC: ERH 08:21
DX: T50.995A Adverse effect of other drugs, medicaments and biological substances, initial encounter (principal)
CPT/HCPCS: 96360; J7040